=== PATIENT | male | born 1970 | race Caucasian/White ===

== ENCOUNTER 2017-04-13 23:07 | Observation (INO) | payer BC ==
[2017-04-14 00:36] LABS: Troponin I Less than 0.010 ng/mL (< 0.028)
[2017-04-14] MEDS ORDERED: Acetaminophen 325 MG TAB PO PRN (01:03)
[2017-04-14] MEDS ORDERED: HYDROcodone/Acetaminophen 5/325 mg Tablet PO PRN (01:03)
[2017-04-14] MEDS ORDERED: Ondansetron HCl/PF 4 MG/2 ML Vial IVP PRN (01:03)
[2017-04-14] MEDS ORDERED: hydrALAZINE 20 MG/ML VIAL SLOW IVP PRN (01:03)
[2017-04-14] MEDS ORDERED: Nitroglycerin 0.4 MG TAB (25 Tab Bottle) PO PRN (01:03)
[2017-04-14] MEDS ORDERED: Calcium Carbonate 500 MG ChewTAB PO PRN (01:03)
[2017-04-14] MEDS ORDERED: Aspirin 325 MG TAB PO SCH (01:30)
[2017-04-14 02:55] VITALS: BMI 49.3
[2017-04-14 03:16] LABS: #Basophils 0.1 thou/uL (0.0-0.2); #Eosinphils 0.5 thou/uL (0.0-0.7); #Lymphocytes 2.8 thou/uL (1.20-3.40); #Neutrophils 7.8 thou/uL (1.40-6.50); %Basophils 0.7 % (0.0-1.0); %Eosinophils 3.8 % (0.0-10.0); %Lymphocytes 22.8 % (21.0-51.0); %Monocytes 8.1 % (0.0-10.0); Hematocrit 48.1 % (42.0-52.0); Mean Platelet Volume 7.6 fL (7.4-10.4); Red Blood Cell (RBC) Count 5.13 mill/uL (4.70-6.10); White Blood Cell (WBC) Count 12.1 thou/uL (4.8-10.8)
[2017-04-14 03:32] LABS: Troponin I Less than 0.010 ng/mL (< 0.028)
[2017-04-14 03:35] LABS: Anion Gap 12 mmol/L (10-20); BUN (Urea Nitrogen) 14 mg/dL (8.9-20.6); Calc. Creatinine Clearance 247 mL/min (70-130); Calcium 9.8 mg/dL (7.8-10.44); Carbon Dioxide 25 mmol/L (22-29); Chloride 103 mmol/L (98-107); Estimated GFR-MDRD Greater than 90
--- NOTE | 2017-04-14 04:26 | HP ---
CHIEF COMPLAINT: Chest pain. HISTORY OF PRESENT ILLNESS: This is a 46-year-old pleasant gentleman who was apparently [facility], came into the hospital because of chest pain. He was in heated argument with his , which led to the chest pain. Patient already has a history of coronary artery disease, statu s post stent. 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 The patient has been having on and off chest pain, but today's chest cruz n was really severe, it was on the left side of the chest wall, some radiation to the neck, it was a bout 8/10 in intensity, it lasted for about 2 hours, relieved by nitropatch and couple of aspirins. Denies any fever, chills, nausea, vomiting, or cough. PAST MEDICAL HISTORY: Significant for NSTEMI, status post stent; obesity; hypoventilation syndrome, uses CPAP at home; hypertension; hyperlipidemia; hypothyroidism. MEDICATIONS: Include Synthroid, Plavix, metoprolol, Lipitor, aspirin, Demadex, lisinopril. PAST SURGICAL HISTORY: Coronary artery disease, status post stent placement. ALLERGIES: None. FAMILY HISTORY: Negative for diabetes and hypertension. SOCIAL HISTORY: Smokes occasional alcohol use, no recreational drug use. REVIEW OF SYSTEMS: Significant for chest pain. Otherwise no fever, no chills, no headache, no appe tite, no hearing loss, no latencies. No cough, no diarrhea, dysuria, or polyuria. No memory or moo d changes. No neck pain. PHYSICAL EXAMINATION: VITAL SIGNS: Blood pressure is 109/70, pulse is 63, respirations 15, afebrile. GENERAL: Patient is lying in bed, right now in no apparent distress. HEENT: Atraumatic, normocephalic. Pupils equal, round, react to light. Extraocular movements are intact. Mucous membranes are moist. NECK: Supple. No JVD. CHEST: Breath sounds. There are no rales or rhonchi. HEART: S1, S2. No murmurs or gallops. ABDOMEN: Soft, obese. EXTREMITIES: No cyanosis, clubbing, or edema. Distal pulses present. NEUROLOGIC: Alert, awake, oriented. No cranial nerve deficits. No sensorimotor deficits. LABORATORY AND DIAGNOSTIC DATA: WBC count is 12, hemoglobin is 16. INR is 0.9, potassium is 4.1, c reatinine is 0.9, troponin 0.01. BNP is less than 10. LDL is 79. EKG normal sinus rhythm at 63. ASSESSMENT AND PLAN: 1. Chest pain, rule out acute coronary syndrome. We will do stress test. Consult Cardiology. Ech ocardiogram, trend troponins. 2. Obstructive sleep apnea. Continue CPAP. 3. Hypertension, stable. 4. Hyperlipidemia, stable. 5. Coronary artery disease, status post stent, stable. 6. Tobacco abuse. Patient has been counseled. 7. Hypothyroidism. We will continue home medications. 8. Morbid obesity. Patient has been counseled. We will follow this stress test results and do the need for.
[2017-04-14] MEDS: Levothyroxine Sodium 100 MCG TAB PO SCH (05:50)
[2017-04-14] MEDS ORDERED: Nicotine 21 MG PATCH TD SCH (06:00)
[2017-04-14 06:24] LABS: Troponin I 0.023 ng/mL (< 0.028)
[2017-04-14] MEDS ORDERED: FLU VACC QS2017-18 36 mo. & older 0.5 ML SYRINGE IM ONE (09:00)
[2017-04-14] MEDS ORDERED: Metoprolol Tartrate 25 MG TAB PO SCH (09:00)
[2017-04-14] MEDS: Clopidogrel Bisulfate 75 MG TAB PO SCH (09:49)
[2017-04-14] MEDS: Aspirin 325 MG TAB PO SCH (09:49)
[2017-04-14] MEDS: Docusate 100 MG CAP PO SCH ×2 (09:49→20:33)
[2017-04-14] MEDS: Torsemide 10 MG TAB PO SCH (09:49)
[2017-04-14] MEDS: Nicotine 21 MG PATCH TD SCH (09:51)
[2017-04-14 14:00] LABS: Troponin I Less than 0.010 ng/mL (< 0.028)
[2017-04-14] MEDS ORDERED: Regadenoson 0.4 MG/5 ML SYRINGE ONE (16:51)
--- NOTE | 2017-04-14 16:52 | PDOC.PN ---
- Subjective Encounter Start Date: 04/14/17 Encounter Start Time: 10:45 -: old records requested/rev Pt seen and examined this morning while on rounds, labs followed. Awaiting cardiology consultation. Pt developed chest tightness to right neck earlier, resolved completely with a SL nitro. NO F/C, no cough, no n/V/D/C, no SOB or diaphoresis 10 point ROS performed and neg for all except as stated in the HPI - Objective Resuscitation Status: FULL MAR Reviewed: Yes Vital Signs & Weight: Vital Signs (12 hours) Temp Pulse Resp BP BP Pulse Ox 04/14/17 15:10 97.5 F L 61 16 126/62 97 04/14/17 14:44 140/83 04/14/17 11:37 97.4 F L 57 L 16 141/89 H 95 04/14/17 08:00 97.7 F 59 L 18 04/14/17 07:17 96 Weight Admit Weight 363 lb 6.4 oz Weight 363 lb 6.4 oz I&O: 04/13/17 04/14/17 04/15/17 06:59 06:59 06:59 Intake Total 240 Balance 240 Result Diagrams: 04/14/17 03:06 04/14/17 03:06 Radiology Reviewed by me: Yes EKG Reviewed by me: Yes Phys Exam - Physical Examination Constitutional: NAD HEENT: PERRLA, moist MMs, sclera anicteric, oral pharynx no lesions Neck: no nodes, no JVD, supple, full ROM Respiratory: no wheezing, no rales, no rhonchi, clear to auscultation bilateral Cardiovascular: RRR, no significant murmur, no rub Gastrointestinal: soft, non-tender, no distention, positive bowel sounds Musculoskeletal: no edema, pulses present Neurological: non-focal, normal sensation, moves all 4 limbs Lymphatic: no nodes Psychiatric: normal affect, A&O x 3 Skin: no rash, normal turgor, cap refill <2 seconds Dx/Plan (1) CAD (coronary artery disease), [place] coronary artery Code(s): I25.10 - ATHSCL HEART DISEASE OF [place] CORONARY ARTERY W/O ANG PCTRS Status: Acute Qualifiers: [place] vs. transplanted heart: [place] heart Associated angina: with unspecified angina Qualified Code(s): I25.119 - Atherosclerotic heart disease of [place] coronary artery with unspecified angina pectoris Comment: pt had another episode of CP this afternoon, tele negative. SL nitro resolved (2) Chronic obstructive airway disease Status: Chronic Qualifiers: COPD type: unspecified COPD Qualified Code(s): J44.9 - Chronic obstructive pulmonary disease, unspecified (3) H/O heart artery stent Code(s): Z95.5 - PRESENCE OF CORONARY ANGIOPLASTY IMPLANT AND GRAFT Status: Chronic Comment: placed [address] Vizcarra to the Ramus (4) Obesity hypoventilation syndrome Code(s): E66.2 - MORBID (SEVERE) OBESITY WITH ALVEOLAR HYPOVENTILATION Status : Chronic (5) Hypothyroidism Code(s): E03.9 - HYPOTHYROIDISM, UNSPECIFIED Status: Chronic Qualifiers: Hypothyroidism type: acquired Qualified Code(s): E03.9 - Hypothyroidism, unspecified (6) Morbid obesity Code(s): E66.01 - MORBID (SEVERE) OBESITY DUE TO EXCESS CALORIES Status: Chronic Comment: BMI 49 - Plan cont current plan of care, plan discussed w/ family * . followup on stress and cardiology results
[2017-04-14] MEDS ORDERED: Atorvastatin Calcium 40 MG TAB PO SCH (21:00)
--- NOTE | 2017-04-15 02:27 | CON ---
DATE OF CONSULTATION: 04/14/2017 HISTORY OF PRESENT ILLNESS: Jonny Heart is a 46-year-old white male that I initially evaluated in the hospital in 04/2015. Seven years prior to that, he underwent cardiac catheterization in [place] and was told that he had 5% narrowing in one of his heart arteries. He has hypothyroidism, but has stopped taking levothyroxine 250 mcg in 10/2014. He also had stopped taking his lisinopril 20 mg one year prior to that evaluation. He was admitted with 4 days of increasing shortness of breath with minimal exertion. He completely denied any type of chest, arm, neck, or jaw discomfort. At times, he would have paresthesias around his jaw when he was short of breath. He came to the emergency room and was found he had an O2 saturation of 84%, he was given supplemental oxygen. His also stated that he snored and eventually, he has been diagnosed with obstructive sleep apnea. CK-MB was normal; however, troponin I went up to 0.144. He then underwent cardiac catheterization. This revealed normal left ventricular function with ejection fraction of 50%-55%. There was a 20% stenosis in the first diagonal. The ramus was large with a 90% lesion and then just distal to this bifurcation with an 80% lesion in the smaller branch. There was some difficulty in wiring the smaller branch. Once that was wired, it was dilated and then Mini Vision 2.5 x 12 mm stent was placed in the smaller branch. Across the takeoff of this branch, a Rebel 3.5 x 20 mm stent was placed. The final result was excellent. The decision was made to place bare-metal stents due to his noncompliance with his previous medications. It was also felt that he had chronic obesity hypoventilation syndrome and chronic respiratory failure with hypoxia and hypercapnia. He underwent an outpatient sleep study which showed that he had obstructive sleep apnea. He has been followed in the office since that time and has denied any chest discomfort. He still gets short of breath after walking 200 feet, but this does not appear to be worsening. He was last seen in 09/2016. His cholesterol has not been yet controlled despite being on 2 drug therapy. He continues to smoke. In retrospect, he states that over the last 6 to 8 months, he has had some sharp , stabbing-type chest pain around the upper left part of his chest. This usually has onset when he is at rest. This would last approximately 5 minutes. Yesterday after an argument with his , he had more intense sharp pain that went somewhat down to his left arm. The pain was pleuritic in nature. This would somewhat wax and wane but was continuously present for over 2 hours. Cardiac enzymes have been unremarkable. He has undergone the stress portion of the Cardiolite and resting portion will be tomorrow. He has had another episode of chest discomfort here, which was relieved with 1 sublingual nitroglycerin. PAST MEDICAL HISTORY: Non-STEMI in 04/2015 followed by a bare-metal stents placed in a bifurcating lesion of a large ramus; obesity hypoventilation syndrome; obstructive sleep apnea; hypothyroidism; hypertension; hyperlipidemia , not controlled. MEDICATIONS: At present include aspirin 81 mg daily, atorvastatin 80 mg daily, Zetia 10 mg daily, levothyroxine 250 mcg q. day, lisinopril 20 mg daily, and torsemide 20 daily. ALLERGIES: None. OPERATIONS: Elbow and knee surgery. SOCIAL HISTORY: Smokes one-half pack per day. He does not drink alcohol. 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 FAMILY HISTORY: Father at 59 of myocardial infarction. Apparently that was his sixth myocardial infarction. Brother and mother have had CABG. REVIEW OF SYSTEMS: Ten-point review of systems is otherwise unremarkable. PHYSICAL EXAMINATION: VITAL SIGNS: 126/62, pulse of 61. HEENT: PERRL. NECK: Supple. LUNGS: Chest is clear. CARDIAC: S1 and S2 are normal without any S3, S4, or murmurs. ABDOMEN: Obese, normal bowel sounds, no tenderness. EXTREMITIES: Revealed no clubbing, cyanosis, or edema. NEUROLOGIC: Grossly intact. SKIN: Warm and dry. MUSCULOSKELETAL: Revealed no palpable left upper chest tenderness. LABORATORY DATA: EKG revealed normal sinus rhythm and is unremarkable. Cardiac enzymes are completely normal. Hemoglobin 16.0, hematocrit 48.1, white count 12,100. Sodium 136, potassium 4.1, chloride 103, carbon dioxide 25, BUN 14, creatinine 0.89. BNP less than 10. IMPRESSION: 1. Atypical chest discomfort which is sharp in nature as well as pleuritic. He had 2 hours of continuous pain with negative cardiac enzymes. 2. History of non-ST elevation myocardial infarction in 04/2015 with the presenting complaint only being dyspnea. He did not have any chest discomfort with his non-ST elevation myocardial infarction. This was followed by a bare- metal stent placement and bifurcating lesion of the ramus 3. Obesity hypoventilation syndrome with hypoxemia at times. 4. Hypertension. 5. Hypercholesterolemia, poorly controlled. 6. Smoker. 7. Positive family history. 8. Hypothyroidism with TSH still being elevated according to the patient. 9. Obstructive sleep apnea. PLAN: TSH and fasting lipid profile will be obtained. Cardiolite scan will be completed tomorrow. Historically, his chest pain does not sound cardiac in nature. Certainly, if his Cardiolite was abnormal, then he would need to undergo cardiac catheterization on Monday. RAEGAND
[2017-04-15] MEDS: Levothyroxine Sodium 100 MCG TAB PO SCH (04:46)
[2017-04-15 05:41] LABS: #Basophils 0.1 thou/uL (0.0-0.2); #Eosinphils 0.4 thou/uL (0.0-0.7); #Lymphocytes 1.7 thou/uL (1.20-3.40); #Monocytes 0.7 thou/uL (0.11-0.59); #Neutrophils 7.4 thou/uL (1.40-6.50); %Basophils 0.5 % (0.0-1.0); %Eosinophils 3.8 % (0.0-10.0); %Lymphocytes 16.9 % (21.0-51.0); %Monocytes 6.4 % (0.0-10.0); Mean Platelet Volume 7.9 fL (7.4-10.4); White Blood Cell (WBC) Count 10.2 thou/uL (4.8-10.8)
[2017-04-15 05:59] LABS: Anion Gap 11 mmol/L (10-20); BUN (Urea Nitrogen) 12 mg/dL (8.9-20.6); Calc. Creatinine Clearance 274 mL/min (70-130); Calcium 9.3 mg/dL (7.8-10.44); Carbon Dioxide 24 mmol/L (22-29); Chloride 105 mmol/L (98-107); Cholesterol 114 mg/dl (< 200 Desired); Estimated GFR-MDRD Greater than 90; LDL Cholesterol, Calculated 68 mg/dL
[2017-04-15 06:10] LABS: Troponin I Less than 0.010 ng/mL (< 0.028)
[2017-04-15 08:13] VITALS: TEMP 97.6
[2017-04-15] MEDS: Docusate 100 MG CAP PO SCH (11:10)
[2017-04-15] MEDS: Aspirin 325 MG TAB PO SCH (11:10)
[2017-04-15] MEDS: Clopidogrel Bisulfate 75 MG TAB PO SCH (11:10)
[2017-04-15] MEDS: Nicotine 21 MG PATCH TD SCH (11:11)
[2017-04-15] MEDS: Torsemide 10 MG TAB PO SCH (11:12)
[2017-04-15 12:14] VITALS: BP 149/79
--- NOTE | 2017-04-15 12:59 | NM ---
NUCLEAR MEDICINE CARDIAC STRESS REST WITH EF AND WALL MOTION: HISTORY: A 46-year-old male with chest and history of coronary artery disease. History of PA. History of st ent, hypertension, dyslipidemia, and smoking history. LexiScan sestamibi study is performed. There is increased end-diastolic volume. No scan evidence for acute ischemia. TID 1.00. LHR 0.0.39. EDV abnormally elevated at 201 mL. Ejection fraction is 47%. MYOCARDIAL PERFUSION WALL MOTION: No significant focal wall motion abnormality. IMPRESSION: Increased end-diastolic volume at 201 mL. Ejection fraction 47%. No scan evidence for ischemia. POS: YELITZA
--- NOTE | 2017-04-15 15:10 | DIS ---
DATE OF ADMISSION: 04/14/2017 DATE OF DISCHARGE: 04/15/2017 DISCHARGE DIAGNOSES: 1. Chest pain, the likelihood of being cardiac in origin. 2. History of coronary artery disease. 3. Severe obesity and obstructive sleep apnea. 4. Hyperlipidemia. 5. Hypertension, essential. 6. Hypothyroidism. CONSULTATIONS: Cardiology, Dr. Adrien Vizcarra. PROCEDURES: 1. Echocardiogram on 04/14/2017 that showed an EF of 50% to 55%, mild TR, mild MR, mildly dilated l eft atrium and overall normal left ventricular function. 2. A nuclear stress test on 04/14/2017 and 04/15/2017, no areas of reversible ischemia. HISTORY OF PRESENT ILLNESS: Mr. Heart is a 46-year-old gentleman with history of coronary artery d isease, status post stenting to the ramus about 2 years ago who presented in the emergency [facility] on 04/13/2017 for chest pain. There was worked up and found to have negative biomarkers and negat corby labs and we were called for admission. The patient was seen and examined, admitted on 04/14/[address] Nunez. His serial cardiac b iomarkers were ordered. Echocardiogram was ordered and a stress test was ordered as well as cardiac consultation. The first part of the stress test was done on 04/14/2017, however, had to wait 04/15/2017 and the se cond part done. The patient was seen by Dr. Adrien Vizcarra who agreed with the stress testing. I reviewed the lab work, and arrange for followup with his partner, Dr. Montejo today. The patient had another episode of chest pain, resolved with nitro, however, despite the severity hi s biomarkers today remain negative. Second portion of his stress test was done and reported out as negative for inducible ischemia and after review Cardiology cleared for discharge with outpatient fo llow up in a week. DISCHARGE PHYSICAL EXAMINATION: The patient was seen and examined. Discharge plan and disposition were discussed with the patient face to face at bedside, next to his mother. DISCHARGE MEDICATIONS: 1. Aspirin 81 mg daily. 2. Lipitor 80 mg p.o. at bedtime. 3. Plavix 75 mg p.o. q.a.m. Prescription for 30 tablets with no refills sent. The patient was sta rted on this on admission, it was not addressed by accounting administrator, we will continue that and will ask Dr. Vizcarra to review this during followup. 4. Zetia 10 mg p.o. at bedtime. 5. Levothyroxine 250 mcg p.o. daily. 6. Lisinopril 20 mg daily. 7. Nitrostat 0.4 mg sublingual every 5 minutes p.r.n. chest pain. Prescription for one vial with 2 refills sent. 8. Torsemide 20 mg daily. FOLLOWUP APPOINTMENTS: 1. Primary care physician within a week. 2. Dr. Adrien Vizcarra with Cardiology in a week. DISCHARGE ACTIVITY: As tolerated. DISCHARGE DIET: Heart healthy. DISCHARGE INSTRUCTIONS: To return to the emergency department or call his PCP or Dr. Vizcarra's off ice for further episode of chest pain.
--- NOTE | 2017-05-09 12:53 | STRESS ---
Acquisition Time: 2017-04-14 08:22:06 Total Exercise Time: 00:01:00 Test Indications: CHEST PAIN Medications: Protocol: LEXISCAN Max HR: 085 BPM 48% of Pred: 176 BPM Max BP: 138/078 mmHG Max Work Load: 1.0 METS RESTING ECG: SINUS BRADYCARDIA AT 56 BPM SYMPTOMS: NONE NORMAL BP RESPONSE ECTOPY: NONE ECG STRESS: NO SIGNIFICANT CHANGES INTERPRETATION: NEGATIVE ECG/AWAIT NUCLEAR IMAGES FOR DEFINITIVE DIAGNOSIS Confirmed by DR. Char SWAIN ([id number]), editorial intern CAROL VÁZQUEZ ([id number]) on 05/09/2017 12:53:01 PM Referred By: MD Silvia JARQUIN Confirmed By:DR. Char SWAIN
--- NOTE | 2017-05-27 16:47 | EKG ---
Test Reason : TRANSFER Blood Pressure : / mmHG Vent. Rate : 063 BPM Atrial Rate : 063 BPM P-R Int : 172 ms QRS Dur : 110 ms QT Int : 430 ms P-R-T Axes : 051 001 050 degrees QTc Int : 440 ms Normal sinus rhythm Normal ECG Confirmed by ALBER GARCIA, FABIOLA ([id number]), assignment editor CHERYL ALVAREZ ([id number]) on 05/27/2017 4:46:45 PM Referred By: ANNE WILSON Confirmed By:FABIOLA CAMPO MD
== END 2017-04-15 15:21 | disposition home or self-care (01) ==
LOC: ERS 23:07 → 2SW 04-14 00:55
PROVIDERS: ADMIT Internal Medicine; ATTEND Internal Medicine
DX: R07.9 Chest pain, unspecified (principal); I25.10 Atherosclerotic heart disease of native coronary artery without angina pectoris; G47.33 Obstructive sleep apnea (adult) (pediatric); E78.5 Hyperlipidemia, unspecified; I10 Essential (primary) hypertension; E03.9 Hypothyroidism, unspecified; I25.2 Old myocardial infarction; J44.9 Chronic obstructive pulmonary disease, unspecified; F17.210 Nicotine dependence, cigarettes, uncomplicated; E66.01 Morbid (severe) obesity due to excess calories; Z79.02 Long term (current) use of antithrombotics/antiplatelets; Z79.82 Long term (current) use of aspirin; Z79.899 Other long term (current) drug therapy; Z68.42 Body mass index [BMI] 45.0-49.9, adult; Z99.89 Dependence on other enabling machines and devices; Z95.818 Presence of other cardiac implants and grafts; Z98.890 Other specified postprocedural states
CPT/HCPCS: 36415; 78452; 80048; 80061; 82553; 84443; 84484; 85025; 90471; 90682; 93005; 93017; 93306; 94760; A4216; A9500; G0008; G0378; J2785; Q2036

== ENCOUNTER 2019-05-08 14:10 | Emergency (ER) | payer BC ==
[~2019-05-08 14:10] MED LIST: Iopamidol-370 76% 500 ML 1 ML ONE
[2019-05-08 15:20] LABS: #Basophils 0.1 thou/uL (0.0-0.2); #Eosinphils 0.4 thou/uL (0.0-0.7); #Lymphocytes 2.7 thou/uL (1.20-3.40); #Monocytes 0.7 thou/uL (0.11-0.59); #Neutrophils 6.9 thou/uL (1.40-6.50); %Basophils 0.8 % (0.0-1.0); %Eosinophils 3.6 % (0.0-10.0); %Monocytes 6.5 % (0.0-10.0); %Neutrophils 64.1 % (42.0-75.0); Hemoglobin 15.1 g/dL (14.0-18.0); Mean Corpuscular HGB CONC 32.8 g/dL (32.0-36.0); Mean Corpuscular Hemoglobin 30.7 pg (27.0-31.0); Mean Corpuscular Volume 93.5 fL (78.0-98.0); Mean Platelet Volume 8.3 fL (7.4-10.4); Platelet Count 207 thou/uL (130-400); RBC Distribution Width 14.1 % (11.5-14.5); Red Blood Cell (RBC) Count 4.93 mill/uL (4.70-6.10); White Blood Cell (WBC) Count 10.8 thou/uL (4.8-10.8)
[2019-05-08 15:44] LABS: ALT (SGPT) 32 U/L (8-55); AST (SGOT) 24 U/L (5-34); Albumin 4.7 g/dL (3.5-5.0); Alkaline Phosphatase 69 U/L (40-110); Anion Gap 14 mmol/L (10-20); BUN (Urea Nitrogen) 14 mg/dL (8.9-20.6); Bilirubin, Total 0.5 mg/dL (0.2-1.2); Calc. Creatinine Clearance 0 mL/min (70-130); Calcium 9.8 mg/dL (7.8-10.44); Carbon Dioxide 28 mmol/L (22-29); Chloride 102 mmol/L (98-107); Estimated GFR-MDRD 70; Glucose 90 mg/dL (70-105); Potassium 4.2 mmol/L (3.5-5.1); Protein, Total 7.7 g/dL (6.0-8.3); Sodium 140 mmol/L (136-145)
[2019-05-08 15:53] LABS: Free T4 (Free Thyroxine) 0.6 ng/dL (0.70-1.48)
--- NOTE | 2019-05-08 15:53 | CT ---
CT OF THE SOFT TISSUES OF THE NECK WITH IV CONTRAST INDICATION: History of dyspnea with neck swelling for one week; patient reports feeling like he's john ng choked cannot breathe. The patient is having cough and hoarseness with intermittent chest pain COMPARISON: None FINDINGS: Aerodigestive tract: Clear. Parotids/Submandibular/Thyroid glands: There is diffuse enlargement of the thyroid gland. Asymmetric masslike enlargement of the left thyroid lobe, particularly on image 77 of series 2 that extends inferior and posterior to the level of the cricoid cartilage. The suspected masslike enlargement hannah ures approximately 4.9 cm. There is surrounding inflammatory change of the adjacent fat with a mild amount of retropharyngeal edema extending from the posterior aspect of the thyroid gland superiorly t o the level of the hypopharynx. No drainable fluid collection is evident. The masslike enlargement of the thyroid gland does cause some mass effect and rightward deviation of the larynx. The visualize d submandibular and parotid glands appear within normal limits. Lymph nodes: There are numerous enlarged lymph nodes surrounding the thyroid gland. One of the large st is seen within the left level 3 position measuring 6 mm. There is an enlarged lymph node adjacent to the esophagus within the superior mediastinum measuring 1.3 cm. There is a left paratrach eal lymph node within the superior mediastinum measuring 1 cm. There are additional shotty appearing lymph nodes within the neck bilaterally extending up into the level 1B and level 2 stations . Lung Apices: Clear. Bones: No acute osseous abnormality. There is scattered degenerative and osteoarthritic change prese nt. Incidentals: None. IMPRESSION: Asymmetric masslike enlargement of the left thyroid lobe with surrounding inflammatory change and ret ropharyngeal edema. Additionally there are enlarged lymph nodes within the neck bilaterally. Findings are nonspecific but may be related to an aggressive left-sided thyroid malignancy or possibl y a slightly atypical thyroid infection. ENT consultation is recommended. Findings were called to GRAYSON Emerson at 3:50 PM on May 08, 2019.
[2019-05-08 15:54] LABS: Thyroid Stimulating Hormone 34.4976 uIU/mL (0.35-4.94)
[2019-05-08] MEDS ORDERED: Dexamethasone 4 mg/ml Vial ONE (16:26)
== END 2019-05-08 16:41 | disposition home or self-care (01) ==
LOC: ERS 14:10
DX: E07.9 Disorder of thyroid, unspecified (principal); E66.9 Obesity, unspecified; E03.9 Hypothyroidism, unspecified; I10 Essential (primary) hypertension; F17.210 Nicotine dependence, cigarettes, uncomplicated; Z79.899 Other long term (current) drug therapy; Z79.82 Long term (current) use of aspirin
CPT/HCPCS: 70491; 80053; 84439; 84443; 84484; 85025; 93005; J1100; Q9967

== ENCOUNTER 2019-05-12 20:29 | Observation (INO) | payer BC, OTHER ==
[2019-05-12] MEDS ORDERED: HYDROcodone/Acetaminophen 5/325 mg Tablet PO PRN (21:30)
[2019-05-12] MEDS ORDERED: Acetaminophen 325 MG TAB PO PRN (21:30)
[2019-05-12] MEDS ORDERED: Bisacodyl 5 MG TAB PO PRN (21:30)
[2019-05-12] MEDS ORDERED: Bisacodyl 10 MG SUPP PR PRN (21:30)
--- NOTE | 2019-05-12 21:33 | PDOC.HHP ---
Hospitalist HPI - History of Present Illness Dysphagia, throat swelling History of Present Illness: Patient is a 49 year old male with PMH hypothyoidism, CHF, newly diagnosed thyroid mass who presents for 2 days of neck swelling and pain with feeling of tightness. Patient was diagnosed with ~5cm L thyroid mass on CT scan of neck on 05/08, concerning for thyroid cancer, ENT was consulted (DR Nickerson), performed an FNA on 05/10 in office, pathology sent here but is still pending. Patient went home and was doing ok but yesterday again developed symptoms of neck swelling and went to ED. Was sent from [facility]. 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 Hospitalist ROS - Review of Systems Constitutional: denies: fever, chills, weakness, malaise Eyes: denies: pain, vision change ENT: reports: throat swelling. denies: nose discharge, nose congestion, mouth pain, mouth swelling, throat pain Respiratory: denies: cough, shortness of breath, SOB with excertion Cardiovascular: denies: chest pain, palpitations Gastrointestinal: denies: nausea, vomiting, abdominal pain Genitourinary: denies: dysuria, frequency Musculoskeletal: denies: neck pain, shoulder pain Skin: denies: rash, lesions Neurological: denies: weakness, numbness All other systems reviewed; all pertinent +/- noted in HPI/Subj Hospitalist History - Past Medical History Other Medical History: CAD stent SOPHIE/OHHS on CPAP HTN HLD hypothyroidism - Past Surgical History Other Surgical History: stent fNA - Family History Family History: denies: cerebrovascular accident, diabetes mellitus - Social History Smoking Status: Current every day smoker Drugs: reports: none - Exam General Appearance: NAD, awake alert Eye: PERRL, anicteric sclera ENT - other findings: fullness of thyroid gland, throat patent Neck - other findings: fullness of thyroid gland, throat patent Heart: RRR, no murmur, no gallops, no rubs Respiratory: CTAB, no wheezes, no rales, no ronchi Gastrointestinal: soft, non-tender, non-distended, normal bowel sounds Extremities: no cyanosis, no clubbing, no edema Skin: no lesions, no rashes Neurological: cranial nerve grossly intact, normal sensation to touch, no weakness, no focal deficits Musculoskeletal: normal tone, normal strength Psychiatric: normal affect, normal behavior, A&O x 3 Hospitalist Results - Labs Lab results: outside labs and imaging reviewed, see reports for details Hospitalist H&P A/P - Plan Plan: Patient is a 49 year old male with PMH hypothyoidism, CHF, newly diagnosed thyroid mass who presents for 2 days of neck swelling and pain with feeling of tightness. # symptomatic thyroid mass - patient has been on steroids for a week or so, does not remember dose or prescription, now with return of symptoms but managing secretions and no shortness of breath or distress, however will observe and resume IV steroids to attempt to control symptoms a little better, Elias discussed with ENT partner integration planner who recommended admission and consult Dr Nickerson tomorrow - admit to floor - consult ENT in AM - IV steroids - # history of CAD/NSTEMI/stent - stable, follow up cardiology as outpatient if preop clearance needed # SOPHIE - continue CPAP # HTN - high, may be anxiety component, resume home meds and PRNs ordered in chart # HLD - resume home meds # tobacco abuse - counselling before discharge # hypothyroidism - resume home meds
[2019-05-12] MEDS ORDERED: cloNIDine 0.1 MG TAB PO PRN (21:50)
[2019-05-12] MEDS ORDERED: Ondansetron PF 4 MG/2 ML Vial IVP PRN (21:50)
[2019-05-12] MEDS ORDERED: Promethazine HCl 12.5 MG in Sodium Chloride 0.9% 50 ML IVPB PRN (21:50)
[2019-05-12] MEDS ORDERED: hydrALAZINE 20 MG/ML VIAL SLOW IVP PRN (21:50)
[2019-05-13] MEDS ORDERED: methylPREDNISolone Sod Succ/PF 125 MG/2 ML VIAL ONE (01:35)
[2019-05-13] MEDS ORDERED: methylPREDNISolone Sod Succ 40 MG VIAL ONE (01:36)
[2019-05-13] MEDS: methylPREDNISolone Sod Succ 40 MG VIAL IVP SCH ×3 (01:46→12:32)
[2019-05-13] MEDS ORDERED: Levothyroxine Sodium 125 MCG TAB PO SCH ×2 (06:00→21:00)
[2019-05-13] MEDS ORDERED: Enoxaparin Sodium 40 MG/0.4 ML SYRINGE SC SCH (09:00)
[2019-05-13] MEDS ORDERED: Aspirin 81 mg Enteric Coated Tablet PO SCH (09:00)
[2019-05-13] MEDS ORDERED: Lisinopril 20 MG TAB PO SCH (09:00)
[2019-05-13] MEDS ORDERED: Torsemide 10 MG TAB PO SCH (09:00)
[2019-05-13 10:59] VITALS: TEMP 97.7; BMI 52.2
[2019-05-13 12:37] VITALS: BP 145/72
[2019-05-13] MEDS ORDERED: Sodium Chloride 0.9% 10 ML ONE (12:42)
[2019-05-13] MEDS ORDERED: Atorvastatin Calcium 40 MG TAB PO SCH (21:00)
--- NOTE | 2019-05-13 21:58 | DIS ---
DATE OF ADMISSION: 05/12/2019 DATE OF DISCHARGE: 05/13/2019 PRIMARY CARE PROVIDER: Shaina Dougherty, ROHAN DISCHARGE DIAGNOSIS: Symptomatic thyroid mass. CONDITION OF PATIENT ON THE DAY OF DISCHARGE: Stable. I assessed Mr. Heart on the day of discharge. He denies any chest pain or shortness of breath. Vital signs are stable. S1 and S2 are heard, regular. Lungs are clear to auscultation bilaterally. DISCHARGE MEDICATIONS: No change was made to his pre-admission home medications , which include: 1. Aspirin 81 mg daily. 2. Atorvastatin 80 mg daily. 3. Ezetimibe 10 mg daily. 4. Synthroid 250 mcg at bedtime. 5. Lisinopril 20 mg daily. 6. Demadex 20 mg daily. 7. Nitroglycerin p.r.n. HOSPITAL COURSE: Mr. Heart is a pleasant 49-year-old gentleman, who was admitted to [facility] on 05/12/2019 for symptomatic thyroid mass. He was observed overnight. He was not hypoxic. He did receive intravenous steroids. I discussed his case with his ENT physician over secure text messaging. The patient was asymptomatic and maintaining good oxygen saturations. There was no evidence of any airway obstruction. His ENT specialist will follow up with him the day after discharge. POST-ACUTE CARE FOLLOWUP: With primary care provider in 3 days and with ENT specialist in 1 day. Many thanks for allowing me to participate in your patient's care. Please feel free to contact me with any questions or concerns. DIET: Heart healthy. ACTIVITY: Ad tito. DISCHARGE DESTINATION: Home. Job ID: [id number]
[2019-05-14] MEDS ORDERED: FLU VACC QS2019-20(6MOS UP)/PF 60 MCG/0.5 ML SYRINGE IM ONE (11:30)
== END 2019-05-13 15:32 | disposition home or self-care (01) ==
LOC: ERS 20:29 → ERHOLD 21:04 → 3SE 05-13 10:33
PROVIDERS: ADMIT Internal Medicine; ATTEND Internal Medicine
DX: E07.9 Disorder of thyroid, unspecified (principal); E03.9 Hypothyroidism, unspecified; I25.10 Atherosclerotic heart disease of native coronary artery without angina pectoris; E66.2 Morbid (severe) obesity with alveolar hypoventilation; I11.0 Hypertensive heart disease with heart failure; I50.9 Heart failure, unspecified; E78.5 Hyperlipidemia, unspecified; F17.200 Nicotine dependence, unspecified, uncomplicated; I25.2 Old myocardial infarction; Z68.43 Body mass index [BMI] 50.0-59.9, adult; Z79.82 Long term (current) use of aspirin; Z79.899 Other long term (current) drug therapy; Z95.5 Presence of coronary angioplasty implant and graft; Z99.89 Dependence on other enabling machines and devices
CPT/HCPCS: 94760; 96374; 96376; G0378; J2920; J2930

== ENCOUNTER 2019-06-12 07:52 | Day surgery (SDC) | payer BC ==
[2019-06-12] MEDS ORDERED: Succinylcholine Chloride 20 MG/ML 10 ml SYRINGE FS ONE (10:02)
[2019-06-12] MEDS ORDERED: Ondansetron PF 4 MG/2 ML Vial ONE (10:02)
[2019-06-12] MEDS ORDERED: PROPOFOL 200 MG/20 ML VIAL ONE (10:02)
[2019-06-12] MEDS ORDERED: Lidocaine 1% PF 5 ML VIAL ONE (10:02)
[2019-06-12] MEDS ORDERED: Dexamethasone 20 MG/5 ML VIAL ONE (10:02)
[2019-06-12] MEDS ORDERED: Labetalol HCl 100 MG/20 ML VIAL ONE (10:02)
[2019-06-12] MEDS ORDERED: Lidocaine 1% w/Epinephrine 1:100K 20 ML VIAL ONE (10:12)
[2019-06-12] MEDS ORDERED: Bacitracin Zinc Ointment 30 gm TUBE ONE (10:12)
[2019-06-12] MEDS ORDERED: Dexmedetomidine 200 MCG/2 ML VIAL ONE (10:17)
[2019-06-12] MEDS ORDERED: Fentanyl 100 MCG/2 ML VIAL ONE ×4 (10:18→14:17)
[2019-06-12 10:36] LABS: Hemoglobin 14.1 g/dL (14.0-18.0); Mean Corpuscular HGB CONC 32.7 g/dL (32.0-36.0); Mean Corpuscular Hemoglobin 30.8 pg (27.0-31.0); Mean Corpuscular Volume 93.9 fL (78.0-98.0); Mean Platelet Volume 9.3 fL (7.4-10.4); Platelet Count 191 thou/uL (130-400); Red Blood Cell (RBC) Count 4.59 mill/uL (4.70-6.10); White Blood Cell (WBC) Count 10.1 thou/uL (4.8-10.8)
[2019-06-12 11:04] LABS: Anion Gap 14 mmol/L (10-20); BUN (Urea Nitrogen) 14 mg/dL (8.9-20.6); Calc. Creatinine Clearance 235 mL/min (70-130); Carbon Dioxide 25 mmol/L (22-29); Chloride 104 mmol/L (98-107); Estimated GFR-MDRD 83; Glucose 76 mg/dL (70-105); Potassium 5.4 mmol/L (3.5-5.1); Sodium 138 mmol/L (136-145)
[2019-06-12] MEDS ORDERED: PROPOFOL 20 ML ONE (11:39)
[2019-06-12] MEDS ORDERED: Nitroglycerin 0.4 MG TAB (25 Tab Bottle) SL PRN (12:57)
[2019-06-12] MEDS ORDERED: Promethazine HCl 25 MG/ML VIAL SLOW IVP PRN (15:57)
[2019-06-12] MEDS: Morphine 2 MG/ML SYRINGE SLOW IVP PRN ×2 (16:18→18:39)
[2019-06-12] MEDS: Calcium Carbonate 500 MG TAB PO SCH (16:20)
[2019-06-12 16:43] VITALS: BMI 51.2
[2019-06-12] MEDS ORDERED: Atorvastatin Calcium 40 MG TAB PO SCH (21:00)
[2019-06-12] MEDS: HYDROcodone/Acetaminophen 7.5/325 mg Tablet PO PRN (21:14)
[2019-06-12] MEDS: ceFAZolin 1 GM/D5W 1 GM in Premix Bag 1 BAG IVPB SCH (21:14)
[2019-06-13] MEDS: HYDROcodone/Acetaminophen 7.5/325 mg Tablet PO PRN ×4 (01:12→15:27)
[2019-06-13] MEDS: ceFAZolin 1 GM/D5W 1 GM in Premix Bag 1 BAG IVPB SCH ×2 (05:26→14:28)
[2019-06-13] MEDS ORDERED: Levothyroxine Sodium 125 MCG TAB PO SCH (06:00)
[2019-06-13] MEDS: Calcium Carbonate 500 MG TAB PO SCH ×2 (08:18→12:17)
[2019-06-13] MEDS ORDERED: Lisinopril 20 MG TAB PO SCH (09:00)
[2019-06-13] MEDS ORDERED: Calcitriol 0.25 MCG CAP PO SCH (09:00)
[2019-06-13] MEDS ORDERED: Ezetimibe 10 MG TAB PO SCH (09:00)
[2019-06-13] MEDS ORDERED: Torsemide 20 MG TAB PO SCH (09:00)
--- NOTE | 2019-06-13 12:14 | OP ---
DATE OF PROCEDURE: 06/12/2019 PREOPERATIVE DIAGNOSES: 1. Thyroid mass. 2. Dysphagia. POSTOPERATIVE DIAGNOSES: 1. Thyroid mass. 2. Dysphagia. PROCEDURES PERFORMED: 1. Left hemithyroidectomy with isthmusectomy. 2. Intraoperative laryngeal nerve monitor. ESTIMATED BLOOD LOSS: 100. COMPLICATIONS: None. ANESTHESIA: GETA. DESCRIPTION OF PROCEDURE: The patient was taken to the operating room, placed supine on the operating room table. General endotracheal anesthesia was obtained by the Anesthesia Staff. The intraoperative laryngeal nerve monitor and electrodes were confirmed to be between the vocal cords by direct laryngoscopy. Following this, the shoulder roll was placed and the tube was secured to the upper midline lip. Following this, the patient was prepped and draped in standard surgical fashion. Following this, an incision was made in a horizontal skin crease approximately 2 cm above the clavicles extending from sternocleidomastoid to the sternocleidomastoid muscle. The incision was carried through skin, subcutaneous tissue, and the platysmal layer. Subplatysmal flaps were elevated superiorly to above the thyroid notch and inferiorly to the level of the clavicle. Following this, strap muscles were identified and were attempted to be in the midline. It was immediately apparent that the large thyroid mass was rock-hard and board-like. It involved and was already infiltrating the majority of the strap musculature. Careful dissection was performed and the thyroid boundaries were very difficult to identify as this process was extremely infiltrative to the surrounding structures. It was extremely avascular. Dissection was carried laterally until the great vessels were palpated. The tissue was extremely friable and there were very poor anatomical landmarks. The left recurrent laryngeal nerve was identified and was noted to be coursing within this mass of thyroid tissue. This specimen also appeared to be not completely encompassing the carotid artery. However, dissection was impossible safely around the carotid artery. Therefore, remnants of this mass was left on the carotid artery for the patient's safety. 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 Therefore, the majority of the left thyroid lobe and the entire isthmus of the thyroid was removed. There was adequate margins around the trachea at least allowing decompression of the trachea. The amount of mass that was removed from this left thyroid lobe was approximately the size of a softball. Following this, the wound was irrigated. Hemostasis was controlled and two OTILIA drains were placed. The wound was then closed using Monocryl stitches for the platysma layer and subcutaneous layer and rupa for the skin. The patient tolerated the procedure well. The intraoperative laryngeal nerve monitor remained on throughout the procedure and assisted in careful dissection and preservation of the recurrent laryngeal nerve. Job ID: [id number]
[2019-06-13 12:16] VITALS: BP 124/79; TEMP 97.9
[2019-06-13] MEDS: Morphine 2 MG/ML SYRINGE SLOW IVP PRN (13:51)
--- NOTE | 2019-06-14 15:21 | EKG ---
Test Reason : PREOP Blood Pressure : / mmHG Vent. Rate : 057 BPM Atrial Rate : 057 BPM P-R Int : 182 ms QRS Dur : 104 ms QT Int : 426 ms P-R-T Axes : 067 041 055 degrees QTc Int : 414 ms Sinus bradycardia Otherwise normal ECG When compared with ECG of 08-MAY-2019 15:10, No significant change was found Confirmed by DR. Char SWAIN ([id number]) on 06/14/2019 3:20:33 PM Referred By: SAMIRA Confirmed By:DR. Char SWAIN
== END 2019-06-13 15:57 | disposition home or self-care (01) ==
LOC: SDC 07:52 → SURG A 15:15 → SDC 06-13 15:57
PROVIDERS: ATTEND Otolaryngology Plastic Surgery within the Head & Neck
PROC: 0GTG0ZZ Resection of Left Thyroid Gland Lobe, Open Approach (ICD-10-PCS; principal; 2019-06-12)
DX: C83.39 Diffuse large B-cell lymphoma, extranodal and solid organ sites (principal); E04.9 Nontoxic goiter, unspecified; I10 Essential (primary) hypertension; E78.5 Hyperlipidemia, unspecified; I25.10 Atherosclerotic heart disease of native coronary artery without angina pectoris; I25.2 Old myocardial infarction; G47.33 Obstructive sleep apnea (adult) (pediatric); F17.210 Nicotine dependence, cigarettes, uncomplicated; F17.290 Nicotine dependence, other tobacco product, uncomplicated; Z79.82 Long term (current) use of aspirin; Z79.899 Other long term (current) drug therapy; Z95.5 Presence of coronary angioplasty implant and graft; Z99.89 Dependence on other enabling machines and devices
CPT/HCPCS: 36415; 36416; 80048; 82310; 85027; 88184; 88307; 88331; 88334; 88341; 88342; 88360; 88365; 93005; 93010; J0690; J1100; J2001; J2270; J2405; J2704; J3010

== ENCOUNTER 2019-06-21 07:16 | Outpatient (CLI) | payer BC ==
--- NOTE | 2019-06-21 10:24 | PET ---
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 Exam is requested for initi al staging TECHNIQUE: PET scanning with CT attenuation correction was performed from the base of the brain to the proximal thighs following the intravenous administration of 11.3 millicuries [id number]. COMPARISON: None. CORRELATION: CT neck of 05/08/2019 FINDINGS: There is a hypermetabolic mass in the region of the left lobe of the thyroid gland which extends post erior to the airway and has an SUV of 50. There is focally increased uptake in the region of the right lobe of the thyroid gland with an SUV of 51. There is a hypermetabolic pretracheal lymph node with an SUV of 23.4. Posterior and to the left of th e thyroid lobe at this level is an another focus of increased uptake in the lymph node with an SUV of 3.6. A hypermetabolic left superior mediastinal lymph node is seen with an SUV of 31. No martine hypermetabolism is seen in the hilar, axillary, abdominal or pelvic lymph nodes. No hypermetabolic pulmonary nodules liver, adrenal or skeletal lesions are seen. There is physiologic activity in the GI and tracts and the visualized portions of the brain. The CT scan used for attenuation correction demonstrates no evidence of pleural effusions or ascites. IMPRESSION: Viable lymphoma in the neck and upper mediastinum.
== END 2019-06-21 07:17 | disposition home or self-care (01) ==
LOC: PET 07:16
PROVIDERS: ATTEND Internal Medicine Hematology & Oncology
DX: C83.31 Diffuse large B-cell lymphoma, lymph nodes of head, face, and neck (principal)
CPT/HCPCS: 78815; A9552

== ENCOUNTER 2019-06-27 07:58 | Day surgery (SDC) | payer BC ==
[2019-06-21 12:31] VITALS: BMI 52.2
[2019-06-27] MEDS ORDERED: Lidocaine 1% w/Epinephrine 1:100K 20 ML VIAL ONE (10:39)
[2019-06-27] MEDS ORDERED: Bupivacaine 0.25% HCL 30 ML VIAL ONE (10:39)
[2019-06-27] MEDS ORDERED: Propofol 500 MG/50 ML VIAL ONE (10:41)
--- NOTE | 2019-06-27 13:30 | RAD ---
RADIOGRAPH CHEST 1 VIEW: DATE: 06/27/2019. TIME: 11:58 a.m. HISTORY: A 49-year-old male status post MediPort placement. COMPARISON: 04/13/2017. FINDINGS: There are no air space densities, pulmonary edema, pneumothorax, or cardiomegaly. The lateral costop hrenic angles are sharp. The only interval change is a new vascular access port catheter descending from the right medial neck, with distal tip overlying the SVC. IMPRESSION: 1. No acute cardiopulmonary findings. 2. Right-sided implantable vascular access port placement without pneumothorax. jn [] POS: TPC
--- NOTE | 2019-06-28 11:05 | OP ---
DATE OF PROCEDURE: 06/27/2019 PREOPERATIVE DIAGNOSIS: Lymphoma. POSTOPERATIVE DIAGNOSIS: Lymphoma. PROCEDURE PERFORMED: Tunneled central line subcutaneous port (MediPort). ANESTHESIA: General. ESTIMATED BLOOD LOSS: Minimal. COMPLICATIONS: None. SPECIMEN: None. FINDINGS: Tip of the catheter at the atriocaval junction. DESCRIPTION OF PROCEDURE: The patient was taken to the operating room and laid supine on the operating room table. After sedation was obtained, bilateral neck and chest were shaved, prepped, and draped in a sterile fashion. Local anesthetic infiltrated over the right internal jugular vein. Internal jugular vein was cannulated using a 22-gauge finder needle followed by a Seldinger needle. Wire was passed into the superior vena cava under fluoro guidance. A small riddhi was made at the wire entrance site. A separate 4 cm incision was made in the right upper chest. Subcutaneous pocket was made below the lower incision. Tubing for the MediPort tunneled from the inferior to the superior incision and suture sheaths placed over the wire into the superior vena cava under fluoro guidance. The dilator and wire were removed. The end of the catheter was sewed into the sheath as the sheath was peeled away. The tip of the catheter was withdrawn to the atriocaval junction and the MediPort tubing cut to fit the MediPort at the lower incision, connected to the MediPort which was sewn to the chest wall in the subcutaneous pocket using Prolene. The wound was irrigated. Local anesthetic was applied. The MediPort was flushed without difficulty. All incisions were closed using 3- 0 Monocryl, 4-0 Monocryl, and Dermabond. The patient was sent to Recovery in stable condition. All instrument counts, needle counts, and lap counts were correct. Job ID: [id number]
== END 2019-06-27 12:50 | disposition home or self-care (01) ==
LOC: SDC 07:58
PROVIDERS: ATTEND Surgery
PROC: 02HV33Z Insertion of Infusion Device into Superior Vena Cava, Percutaneous Approach (ICD-10-PCS; principal; 2019-06-27)
DX: C85.90 Non-Hodgkin lymphoma, unspecified, unspecified site (principal); I10 Essential (primary) hypertension; E78.5 Hyperlipidemia, unspecified; I25.10 Atherosclerotic heart disease of native coronary artery without angina pectoris; G47.33 Obstructive sleep apnea (adult) (pediatric); E89.0 Postprocedural hypothyroidism; F17.210 Nicotine dependence, cigarettes, uncomplicated; Z79.82 Long term (current) use of aspirin; Z79.899 Other long term (current) drug therapy; Z99.89 Dependence on other enabling machines and devices
CPT/HCPCS: 71045; 80053; 82248; 83615; 84100; 84550; C1788; J0690; J1642; J2704; S0020

== ENCOUNTER 2019-09-20 10:25 | Outpatient (CLI) | payer BC ==
--- NOTE | 2019-09-20 11:09 | ULT ---
EXAM: Bilateral lower extremity venous ultrasound HISTORY: Swelling. Edema. COMPARISON: None TECHNIQUE: Multiplanar grayscale and color Doppler images were obtained in a bilateral lower extremit y venous ultrasound. Spectral analysis of the Doppler waveforms were performed. FINDINGS: The bilateral common femoral vein, profunda femoral veins, superficial femoral veins, and p opliteal veins are normal in appearance without visible thrombus. These vessels demonstrate normal compression, flow, and augmentation. The bilateral posterior tibial veins, profunda femoral veins and greater saphenous veins are patent w ithout evidence of DVT. IMPRESSION: No evidence of DVT in the left or right lower extremity.
== END 2019-09-20 10:26 | disposition home or self-care (01) ==
LOC: ULT 10:25
PROVIDERS: ATTEND Internal Medicine Hematology & Oncology
DX: M79.604 Pain in right leg (principal); R60.0 Localized edema; M79.89 Other specified soft tissue disorders

== ENCOUNTER 2019-11-14 11:58 | Outpatient (CLI) | payer BC ==
--- NOTE | 2019-11-14 15:02 | PET ---
Radionucleotide PET scan with CT attenuation correction HISTORY: Diffuse large B-cell lymphoma, head and neck. Restaging. COMPARISON: 06/21/2019. FINDINGS: Physiologic uptake of radiotracer is present throughout the enteric system and along each u rinary tract. There is no residual hypermetabolic disease along the left side of the neck, where severe abnormality was present on the prior study. Uptake that is present associated with the esophageal mucosa. At the inferior aspect of the right thyroid bed, below the area of activity on the prior study (were max SUV was 49.0), a somewhat ill-defined obliquely oriented oval area of increased uptake shows max SUV 8.3. No other areas of abnormal hypermetabolic activity are apparent. Some uptake is associated with skin contamination over the right lower quadrant. Nondiagnostic CT attenuation correction images show a new right internal jugular Port-A-Cath. IMPRESSION : Complete response, without residual hypermetabolic lymphomatous activity. The uptake at the inferior aspect of the right thyroid bed is favored to be reactive. Douville score 1.
== END 2019-11-14 11:59 | disposition home or self-care (01) ==
LOC: PET 11:58
PROVIDERS: ATTEND Internal Medicine Hematology & Oncology
DX: C83.31 Diffuse large B-cell lymphoma, lymph nodes of head, face, and neck (principal)
CPT/HCPCS: 78815; 80053; 82248; 83615; 84100; 84550; A9552

== ENCOUNTER 2019-12-12 03:50 | Emergency (ER) | payer BC, SELFPAY ==
[2019-12-12] MEDS ORDERED: Proparacaine 0.5% Opth 15 ML BOT ONE (03:59)
[2019-12-12] MEDS ORDERED: Bupivacaine 0.5% 10 ML VIAL ONE (03:59)
[2019-12-12] MEDS ORDERED: Fluorescein Opthalmic Strip ONE (03:59)
== END 2019-12-12 04:29 | disposition home or self-care (01) ==
LOC: ERS 03:50
DX: T15.01XA Foreign body in cornea, right eye, initial encounter (principal); E66.9 Obesity, unspecified; E03.9 Hypothyroidism, unspecified; I10 Essential (primary) hypertension; F17.210 Nicotine dependence, cigarettes, uncomplicated; Z79.82 Long term (current) use of aspirin; Z79.899 Other long term (current) drug therapy
CPT/HCPCS: 65220; J3490

== ENCOUNTER 2022-01-31 16:28 | Emergency (ER) | payer BC, SELFPAY ==
[2022-01-31] MEDS ORDERED: Dexamethasone 4 MG TAB ONE (19:36)
[2022-01-31] MEDS ORDERED: Morphine 4 MG/ML VIAL ONE (19:36)
[2022-01-31] MEDS ORDERED: Ketorolac Tromethamine 30 MG/ML VIAL ONE (19:38)
[2022-01-31] MEDS ORDERED: HYDROmorphone 0.5 MG/0.5 ML SYRINGE ONE (20:02)
== END 2022-01-31 20:15 | disposition home or self-care (01) ==
LOC: ERS 16:28
DX: M54.30 Sciatica, unspecified side (principal); E03.9 Hypothyroidism, unspecified; I10 Essential (primary) hypertension; F17.210 Nicotine dependence, cigarettes, uncomplicated; Z79.82 Long term (current) use of aspirin; Z79.899 Other long term (current) drug therapy
CPT/HCPCS: 70450; 96372; J1170; J1885; J2270; J8540

== ENCOUNTER 2022-02-21 16:12 | Inpatient (IN) | payer SELFPAY ==
[2022-02-21 18:26] LABS: #Basophils 0.1 thou/uL (0.0-0.2); #Eosinphils 0.3 thou/uL (0.0-0.7); #Lymphocytes 2.4 thou/uL (1.20-3.40); #Monocytes 0.9 thou/uL (0.11-0.59); #Neutrophils 7.5 thou/uL (1.40-6.50); %Basophils 0.9 % (0.0-1.0); %Eosinophils 2.5 % (0.0-10.0); %Lymphocytes 21.5 % (21.0-51.0); %Monocytes 7.9 % (0.0-10.0); %Neutrophils 67.2 % (42.0-75.0); Hemoglobin 12.9 g/dL (14.0-18.0); Mean Corpuscular HGB CONC 32.2 g/dL (32.0-36.0); Mean Corpuscular Hemoglobin 30.9 pg (27.0-31.0); Mean Platelet Volume 8.4 fL (7.4-10.4); Platelet Count 231 thou/uL (130-400); RBC Distribution Width 15.8 % (11.5-14.5); Red Blood Cell (RBC) Count 4.16 mill/uL (4.70-6.10); White Blood Cell (WBC) Count 11.2 thou/uL (4.8-10.8)
[2022-02-21 18:36] LABS: ALT (SGPT) 24 U/L (8-55); AST (SGOT) 18 U/L (5-34); Albumin 4.3 g/dL (3.5-5.0); Alkaline Phosphatase 54 U/L (40-110); Anion Gap 14 mmol/L (10-20); BUN (Urea Nitrogen) 12 mg/dL (8.9-20.6); Bilirubin, Total 0.4 mg/dL (0.2-1.2); Calc. Creatinine Clearance 0 mL/min (70-130); Calcium 9.1 mg/dL (7.8-10.44); Carbon Dioxide 30 mmol/L (22-29); Chloride 101 mmol/L (98-107); Estimated GFR 77; Globulin 2.8 g/dL (2.4-3.5); Glucose 92 mg/dL (70-105); Potassium 4.3 mmol/L (3.5-5.1); Protein, Total 7.1 g/dL (6.0-8.3); Sodium 141 mmol/L (136-145)
[2022-02-21 21:27] LABS: Bilirubin Negative (Negative); Blood, Urine Negative (Negative); Clarity Clear (Clear); Glucose, Urine (Dipstick) Normal (Negative); Ketone, Urine Negative (Negative); Leukocyte Negative Leu/uL (Negative); Nitrite Negative (Negative); Protein, Urine (Dipstick) Negative (Neg-Trace); Specific Gravity, Urine 1.023 (1.002-1.036); Urobilinogen Normal mg/dL (Less than 2); pH, Urine 6.5 (5.0-9.0)
[2022-02-21] MEDS ORDERED: hydrALAZINE 20 MG/ML VIAL ONE (21:36)
[2022-02-21] MEDS ORDERED: Aspirin Chewable 81 MG TAB ONE (23:22)
[2022-02-21] MEDS ORDERED: Labetalol HCl 100 MG/20 ML VIAL ONE (23:22)
[2022-02-21] MEDS ORDERED: Ondansetron PF 4 MG/2 ML Vial IVP PRN (23:45)
[2022-02-21] MEDS ORDERED: Acetaminophen 325 MG TAB PO PRN (23:45)
[2022-02-21] MEDS ORDERED: Ondansetron ODT 4 MG TAB SL PRN (23:45)
[2022-02-22 01:16] LABS: Troponin I Less than 0.010 ng/mL (< 0.028)
[2022-02-22] MEDS ORDERED: Lisinopril 20 MG TAB PO SCH (02:30)
[2022-02-22] MEDS ORDERED: Lisinopril 10 MG TAB ONE (02:39)
[2022-02-22] MEDS ORDERED: Levothyroxine Sodium 100 MCG TAB PO SCH (06:00)
[2022-02-22 07:20] LABS: #Basophils 0.1 thou/uL (0.0-0.2); #Eosinphils 0.2 thou/uL (0.0-0.7); #Lymphocytes 1.9 thou/uL (1.20-3.40); #Monocytes 0.6 thou/uL (0.11-0.59); #Neutrophils 6.7 thou/uL (1.40-6.50); %Basophils 0.9 % (0.0-1.0); %Eosinophils 2.3 % (0.0-10.0); %Lymphocytes 19.7 % (21.0-51.0); %Monocytes 6.7 % (0.0-10.0); %Neutrophils 70.5 % (42.0-75.0); Hemoglobin 12.3 g/dL (14.0-18.0); Mean Corpuscular HGB CONC 31.1 g/dL (32.0-36.0); Mean Corpuscular Volume 96.3 fL (78.0-98.0); Mean Platelet Volume 8.4 fL (7.4-10.4); Platelet Count 217 thou/uL (130-400); RBC Distribution Width 15.7 % (11.5-14.5); Red Blood Cell (RBC) Count 4.11 mill/uL (4.70-6.10); White Blood Cell (WBC) Count 9.5 thou/uL (4.8-10.8)
[2022-02-22 07:44] LABS: Troponin I 0.019 ng/mL (< 0.028)
[2022-02-22 07:49] LABS: Anion Gap 14 mmol/L (10-20); BUN (Urea Nitrogen) 10 mg/dL (8.9-20.6); Calc. Creatinine Clearance 212 mL/min (70-130); Calcium 9.1 mg/dL (7.8-10.44); Carbon Dioxide 28 mmol/L (22-29); Chloride 102 mmol/L (98-107); Estimated GFR 89; Glucose 99 mg/dL (70-105); Magnesium 2.2 mg/dL (1.6-2.6); Potassium 4.4 mmol/L (3.5-5.1); Sodium 140 mmol/L (136-145)
[2022-02-22] MEDS: hydrALAZINE 20 MG/ML VIAL SLOW IVP PRN (08:04)
[2022-02-22] MEDS: Lisinopril 20 MG TAB PO SCH (08:04)
[2022-02-22 10:24] VITALS: BMI 51.5
[2022-02-22] MEDS: Torsemide 10 MG TAB PO SCH (11:11)
[2022-02-22 11:18] LABS: SARS-CoV-2 NAA Rapid Test DETECTED (NotDetected)
[2022-02-22] MEDS ORDERED: Dexamethasone 10 MG/ML VIAL SLOW IVP SCH (12:00)
[2022-02-22 12:15] LABS: Free T4 (Free Thyroxine) Less than 0.40 ng/dL (0.70-1.48)
[2022-02-22] MEDS ORDERED: Docusate 100 MG CAP PO PRN (18:15)
[2022-02-22] MEDS ORDERED: Levothyroxine Sodium 25 MCG TAB PO SCH (21:00)
[2022-02-23] MEDS ORDERED: Benzonatate 100 MG CAP PO PRN (04:04)
[2022-02-23] MEDS ORDERED: Albuterol 200 PUFF (6.7GM INHALER) INH PRN (04:04)
[2022-02-23 05:09] LABS: #Lymphocytes 1.3 thou/uL (1.20-3.40); #Monocytes 0.7 thou/uL (0.11-0.59); #Neutrophils 11.3 thou/uL (1.40-6.50); %Basophils 0.1 % (0.0-1.0); %Eosinophils 0.3 % (0.0-10.0); %Lymphocytes 9.6 % (21.0-51.0); %Monocytes 5.2 % (0.0-10.0); %Neutrophils 84.7 % (42.0-75.0); Hemoglobin 12.4 g/dL (14.0-18.0); Mean Corpuscular HGB CONC 30.8 g/dL (32.0-36.0); Mean Corpuscular Hemoglobin 29.5 pg (27.0-31.0); Mean Corpuscular Volume 95.9 fL (78.0-98.0); Mean Platelet Volume 8.6 fL (7.4-10.4); Platelet Count 233 thou/uL (130-400); RBC Distribution Width 15.6 % (11.5-14.5); White Blood Cell (WBC) Count 13.4 thou/uL (4.8-10.8)
[2022-02-23] MEDS: hydrALAZINE 20 MG/ML VIAL SLOW IVP PRN (05:20)
[2022-02-23 05:51] LABS: Anion Gap 16 mmol/L (10-20); BUN (Urea Nitrogen) 15 mg/dL (8.9-20.6); Calc. Creatinine Clearance 209 mL/min (70-130); Calcium 9.7 mg/dL (7.8-10.44); Carbon Dioxide 26 mmol/L (22-29); Chloride 101 mmol/L (98-107); Estimated GFR 88; Glucose 114 mg/dL (70-105); Potassium 4.6 mmol/L (3.5-5.1); Sodium 138 mmol/L (136-145)
[2022-02-23] MEDS ORDERED: Levothyroxine Sodium 25 MCG TAB PO SCH (06:00)
[2022-02-23] MEDS ORDERED: Ascorbic Acid 500 mg Chewable Tablet PO SCH (09:00)
[2022-02-23] MEDS ORDERED: Zinc Sulfate 220 MG CAP PO SCH (09:00)
[2022-02-23] MEDS ORDERED: Dexamethasone 10 MG/ML VIAL SLOW IVP SCH (09:00)
[2022-02-23] MEDS ORDERED: Polyethylene Glycol 3350 17 GM Packet PO SCH (09:00)
[2022-02-23] MEDS: Lisinopril 20 MG TAB PO SCH (09:07)
[2022-02-23] MEDS: Torsemide 10 MG TAB PO SCH (09:08)
[2022-02-23 15:56] VITALS: BP 175/89; TEMP 97.8
[2022-02-23] MEDS ORDERED: Lisinopril 20 MG TAB PO SCH (21:00)
== END 2022-02-23 18:57 | disposition home or self-care (01) | DRG 304 ==
LOC: ERS 16:12 → ERHOLD 23:33 → 2SW 02-22 12:19 → OBSVTOIN 02-23 10:11
PROVIDERS: ADMIT Internal Medicine; ATTEND Nurse Practitioner Acute Care
PROC: 3E0333Z Introduction of Anti-inflammatory into Peripheral Vein, Percutaneous Approach (ICD-10-PCS; principal; 2022-02-23)
PROC: 8E0ZXY6 Isolation (ICD-10-PCS; 2022-02-23)
DX: I16.0 Hypertensive urgency (principal); J96.01 Acute respiratory failure with hypoxia; U07.1 COVID-19; Z68.43 Body mass index [BMI] 50.0-59.9, adult; E78.5 Hyperlipidemia, unspecified; I25.10 Atherosclerotic heart disease of native coronary artery without angina pectoris; E03.9 Hypothyroidism, unspecified; G47.33 Obstructive sleep apnea (adult) (pediatric); F17.210 Nicotine dependence, cigarettes, uncomplicated; D64.9 Anemia, unspecified; R04.0 Epistaxis; E78.00 Pure hypercholesterolemia, unspecified; E66.9 Obesity, unspecified; Z95.5 Presence of coronary angioplasty implant and graft; Z79.82 Long term (current) use of aspirin; Z79.899 Other long term (current) drug therapy; Z98.890 Other specified postprocedural states; Z91.14 Patient's other noncompliance with medication regimen
CPT/HCPCS: 36415; 70450; 71045; 80048; 80053; 81003; 83615; 83735; 83880; 84439; 84443; 84481; 84484; 85025; 86140; 93005; 93306; 96374; 96375; 96376; G0378; J0360; J1100; U0002

== ENCOUNTER 2023-06-04 12:23 | Emergency (ER) | payer BC, OTHER ==
[2023-06-04 13:57] LABS: #Basophils 0.1 thou/uL (0.0-0.2); #Monocytes 0.6 thou/uL (0.11-0.59); #Neutrophils 5.3 thou/uL (1.40-6.50); %Basophils 1.1 % (0.0-1.0); %Eosinophils 0.5 % (0.0-10.0); %Lymphocytes 9.8 % (21.0-51.0); %Monocytes 8.4 % (0.0-10.0); %Neutrophils 79.9 % (42.0-75.0); Hematocrit 42.2 % (42.0-52.0); Hemoglobin 12.9 g/dL (14.0-18.0); Mean Corpuscular HGB CONC 30.6 g/dL (32.0-36.0); Mean Corpuscular Hemoglobin 29.1 pg (27.0-31.0); Mean Platelet Volume 9.7 fL (7.4-10.4); Platelet Count 196 10x3/uL (130-400); RBC Distribution Width 16.5 % (11.5-14.5); Red Blood Cell (RBC) Count 4.44 mill/uL (4.70-6.10); White Blood Cell (WBC) Count 6.7 10x3/uL (4.8-10.8)
[2023-06-04] MEDS ORDERED: Ipratropium/Albuterol 3 ML NEB ONE (14:03)
[2023-06-04 14:28] LABS: ALT (SGPT) 22 U/L (8-55); AST (SGOT) 27 U/L (5-34); Albumin 4.1 g/dL (3.5-5.0); Alkaline Phosphatase 58 U/L (40-110); Anion Gap 14 mmol/L (10-20); BUN (Urea Nitrogen) 12 mg/dL (8.4-25.7); Bilirubin, Total 0.5 mg/dL (0.2-1.2); Calc. Creatinine Clearance 0 mL/min (70-130); Calcium 8.1 mg/dL (7.8-10.44); Carbon Dioxide 28 mmol/L (22-29); Chloride 102 mmol/L (98-107); Estimated GFR 86; Globulin 2.7 g/dL (2.4-3.5); Glucose 97 mg/dL (70-105); Protein, Total 6.8 g/dL (6.0-8.3); Sodium 140 mmol/L (136-145); Troponin I 0.015 ng/mL (< 0.028)
[2023-06-04 19:29] LABS: Actual Bicarbonate (HCO3v) 28.8 mEq/L (22-28); Base Excess 0.7 mEq/L (-2.0 to +3.0); Calcium, Ionized (venous) 1.04 mmol/L (1.16-1.32); Chloride (VBG) 99 mmol/L (98-106); Hematocrit-VBG 40 % (42.0-52.0); Hemoglobin (Hb) 13.6 g/dL (13.1-17.2); Potassium (VBG) 3.93 mmol/L (3.70-5.30); Sodium 140 mmol/L (133-146); pH (venous) 7.287 (7.32-7.43)
== END 2023-06-04 13:30 | disposition left against medical advice (07) ==
LOC: ERS 12:23
DX: R09.02 Hypoxemia (principal); I11.0 Hypertensive heart disease with heart failure; I50.9 Heart failure, unspecified; R06.2 Wheezing; F17.210 Nicotine dependence, cigarettes, uncomplicated
CPT/HCPCS: 36415; 71045; 80053; 82805; 83605; 83735; 83880; 84484; 85025; 85379; 86850; 86900; 86901; 87040; 93005; 94640; J7620